=== PATIENT | female | born 1945 | race Caucasian/White ===

== ENCOUNTER 2021-05-23 08:43 | Outpatient (CLI) | payer MEDICARE ==
[2021-05-23] VITALS (18 sets, daily range): BP systolic 82–160; BP diastolic 38–78
== END 2021-05-23 23:59 | disposition home or self-care (01) ==
LOC: CARD DIAG 08:43
PROVIDERS: ATTEND Internal Medicine Interventional Cardiology
DX: R00.2 Palpitations (principal)
CPT/HCPCS: 93660